=== PATIENT | male | born 2000 | race Caucasian/White ===

== ENCOUNTER 2018-03-22 21:19 | Emergency (ER) | payer BC ==
[2018-03-22 21:48] VITALS: BP 129/80
--- NOTE | 2018-03-22 22:02 | UC ---
Dizzy HPI HPI Summary: The patient is a 17 y/o M presenting to [facility] with a chief complaint of feeling dizzy and lightheaded with blurred vision starting at 1500 today. He was in the library starting when his symptoms started. He has taken two Advil to mild relief, and he is currently lightheaded. He denies headache, CP, SOB, nausea, vomiting. He reports that he took Adderall PO but isn't sure how much he took because it was crushed up. He has taken Adderall before and has not had these symptoms, which started about two hours after he ingested the medication. He has had an episode of dizziness like this once before a few months ago right before boarding a plane. He also states that he hasn't been sleeping well for a few months. HE ALSO HAS ONGOING RASH ON HIS FACE AND EXTREMITIES FOR WHICH HE HAS SEEN DERMATOLOGY AND USING TOPICAL STEROIDS. - History Of Current Complaint Chief Complaint: UCDizziness Stated Complaint: DIZZY, DIVISON CHANGE Time Seen by Provider: 03/22/18 21:23 Hx Obtained From: Patient Onset/Duration: Sudden Onset, Lasting Hours - started at 1500, Still Present Timing: Hours Severity Initially: Moderate Severity Currently: Moderate Pain Intensity: 1 Pain Scale Used: 0-10 Numeric Character: Lightheaded, Dizzy Aggravating Factor(s): Nothing Alleviating Factor(s): Nothing Associated Signs And Symptoms: Positive: Visual Changes - blurred. Negative: Nausea, Vomiting, Chest Pain, SOB - Allergies/Home Medications Allergies/Adverse Reactions: Allergies Allergy/AdvReac Type Severity Reaction Status Date / Time No Known Allergies Allergy Verified 03/22/18 21:37 Home Medications: Home Medications Ibuprofen [Advil] 400 mg PO Q8HR 03/22/18 [History Confirmed 03/22/18] PMH/Surg Hx/FS Hx/Imm Hx Previously Healthy: Yes Endocrine History: Other Other Endocrine History: NEGATIVE: diabetes Other Cardiovascular History: negative Respiratory History: Other Other Respiratory History: NEGATIVE: asthma Other GI/ History: negative Other Neurological History: negative Psychological History: Other Other Psychological History: NEGATIVE: anxiety Other Cancer History: negative - Surgical History Surgical History: Yes Surgery Procedure, Year, and Place: teeth surgery - Family History Known Family History: Positive: Other - thyroid cancer - father, breast cancer - mother Negative: Cardiac Disease, Hypertension, Diabetes - Social History Occupation: Student Alcohol Use: Weekly Alcohol Amount: drank 6 beers last night Substance Use Type: Marijuana Substance Use Comment - Amount & Last Used: occasional Smoking Status (MU): Never Smoked Tobacco Review of Systems Constitutional: Negative Skin: Rash - FACE AND EXTREMITIES. Eyes: Blurred Vision, Other ENT: Negative Respiratory: Negative Cardiovascular: Negative, Other - NEGATIVE: CP Gastrointestinal: Negative, Other - NEGATIVE: nausea, vomiting Genitourinary: Negative Motor: Negative Neurovascular: Negative Musculoskeletal: Negative Neurological: Headache, Other - dizziness, lightheaded, sleep loss Psychological: Negative Is Patient Immunocompromised?: No All Other Systems Reviewed And Are Negative: Yes Physical Exam - Summary Physical Exam Summary: Appearance: Well-Appearing, No Pain Distress, Well-Nourished Eyes: conjunctiva clear, no discharge ENT: Hearing grossly normal, no muffled/hoarse voice. Neck: Normal, Supple Respiratory/Lung Sounds: Lungs clear, Normal breath sounds, No respiratory distress, No accessory muscle use Cardiovascular: RRR, No murmur Abdomen: Nontender, Soft, no guarding, not distended Bowel Sounds: Present Musculoskeletal: Normal Neurological: Alert, muscle tone normal Psychiatric:Normal, age appropriate behavior Skin: Normal, Warm, Dry, Normal color Erythematous rash on the face and extremities. Triage Information Reviewed: Yes Vital Signs: Initial Vital Signs Temp 99.3 F 03/22/18 21:39 Pulse 79 03/22/18 21:39 Resp 18 03/22/18 21:39 BP 129/80 03/22/18 21:39 Pulse Ox 97 03/22/18 21:39 Vital Signs Reviewed: Yes Diagnostics - EKG EKG Comments: NSR at HR of 64/ min, Normal MI interval , normal QRS interval. ST-T wave changes- ST elevation in V2 V3 and V4, no reciprocal changes- early repolarization. Cardiac Rate: NL Cardiac Rhythm: Sinus: Normal Ectopy: None ST Segment: Non-Specific Dizzy Course/Dx - Course Course Of Treatment: During the visit today, we obtained EKG which shoeed ST elevation , likely early repolarization. I discussed this with Dr. Arenas in ER and gave then the report of his continued symptoms and plan to send him to ER. Also spoke to his mom and discussed plan of care. We discussed the findings and further plan o have him seen in ER. Patient expressed understanding . - Differential Dx/Diagnosis Provider Diagnoses: Anxiety. Medication side effect. Sleep deprivation Discharge - Sign-Out/Discharge Documenting (check all that apply): Patient Departure - Patient will be discharged home. All imaging exams completed and their final reports reviewed: No Studies - Discharge Plan Condition: Stable Disposition: HOME-RECOMMEND TO ED Referrals: [facility], [Primary Care Provider] - Additional Instructions: It's recommended that you go to the ER for further evaluation. This has been discussed with the ER physician. - Billing Disposition and Condition Condition: STABLE Disposition: Home-Recommend to ED - Attestation Statements Document Initiated by Yimiibe: Yes Documenting Scribe: Domonique Pretty Provider For Whom Malina is Documenting (Include Credential): Dr. Kenneth Chavez MD Scribe Attestation: Domonique Callahan scribed for Dr. Kenneth Chavez MD on 03/23/18 at 0126. Scribe Documentation Reviewed: Yes Provider Attestation: The documentation as recorded by the Domonique singh accurately reflects the service I personally performed and the decisions made by me, Dr. Kenneth Chavez MD
== END 2018-03-22 22:48 | disposition home health service (06) ==
LOC: UCEAST 21:19
DX: F41.9 Anxiety disorder, unspecified (principal); R42 Dizziness and giddiness; H53.8 Other visual disturbances; T43.625A Adverse effect of amphetamines, initial encounter; Y92.241 Library as the place of occurrence of the external cause; Z72.820 Sleep deprivation
CPT/HCPCS: 93005; 99202; G0463

== ENCOUNTER 2018-03-22 23:13 | Emergency (ER) | payer BC ==
--- NOTE | 2018-03-23 00:21 | ED ---
Dizziness - HPI Summary HPI Summary: This patient is a 16 year old M presenting to [facility] with a chief complaint of dizziness since 1500. He states he felt fine this morning at and was at the at the library studying. He states that he had a sudden onset of blurred vision followed by light headedness and dizziness. The blurred vision lasted about 20 minutes and then resolved. He describes the dizziness as feeling detached. The patient rates the pain 0/10 in severity. Patient reports left sided CP that began 10 minutes after arrival. Patient denies syncope, CROCKETT, and feeling as though the room was spinning. Pt states he has not slept much about 5 hours a night. He had a chest cold a couple weeks ago. Pt states he took Adderall this am but state he had not had adverse effects in the past. He went to the [facility] at 2100 and had an abnormal EKG. - History Of Current Complaint Chief Complaint: EDDizziness Stated Complaint: LIGHT HEADED, SENT FROM Time Seen by Provider: 03/23/18 00:09 Hx Obtained From: Patient Onset/Duration: Still Present, Suddenly Timing: Constant Severity Initially: Mild Severity Currently: Mild Character: Unable To Describe - feeling detached Associated Signs And Symptoms: Positive: Negative - fever. Negative: Inability to Walk - Allergies/Home Medications Allergies/Adverse Reactions: Allergies Allergy/AdvReac Type Severity Reaction Status Date / Time No Known Allergies Allergy Verified 03/22/18 21:37 PMH/Surg Hx/FS Hx/Imm Hx Endocrine/Hematology History: Denies: Hx Blood Disorders, Hx Systemic Lupus Erythematosus, Hx Sickle Cell Disease Cardiovascular History: Denies: Hx Peripheral Vascular Disease Respiratory History: Reports: Hx Asthma - as a child GI History: Denies: Hx Gall Bladder Disease, Hx Gastrointestinal Bleed - Surgical History Surgery Procedure, Year, and Place: teeth surgery Infectious Disease History: No Infectious Disease History: Denies: Traveled Outside the [place] in Last 30 Days - Family History Known Family History: Positive: Other - thyroid cancer - father, breast cancer - mother Negative: Cardiac Disease, Hypertension, Diabetes - Social History Occupation: Student Alcohol Use: Weekly Alcohol Amount: drank 6 beers last night Substance Use Type: Reports: Marijuana Substance Use Comment - Amount & Last Used: occasional Smoking Status (MU): Never Smoked Tobacco Review of Systems Positive: Blurred Vision Positive: Chest Pain Neurological: Other - dizziness and light headedness Negative: Headache, Syncope All Other Systems Reviewed And Are Negative: Yes Physical Exam - Summary Physical Exam Summary: Appearance: Well-appearing, Well-nourished, lying in bed comfortably Skin: Warm, dry, no obvious rash Eyes: sclera anicteric, no conjunctival pallor ENT: mucous membranes moist, pharynx appears normal Neck: Supple, nontender Respiratory: Clear to auscultation, no signs of respiratory distress Cardiovascular: Normal S1, S2. No murmurs. Normal distal pulses in tibial and radial bilaterally. Abdomen: Soft, nontender, normal active bowel sounds present Musculoskeletal: Normal, Strength/ROM Intact, Motor function in all 4 extremities is normal and symmetric. There is no rigidity or tremor noted. Neurological: A&Ox3, awake and alert, mentation is normal, speech is fluent and appropriate, Level of consciousness nml. The patient is alert and oriented. Cranial nerves are grossly intact. Gaze is conjugate and without nystagmus. Peripheral vision is intact to confrontation. There are no gross sensory abnormalities to light touch. There is no truncal or fine motor ataxia. Gait is normal. Psychiatric: affect is normal, does not appear anxious or depressed Vital Signs On Initial Exam: Initial Vitals Temp Pulse Resp BP Pulse Ox 98.4 F 61 16 139/72 97 03/22/18 23:19 03/22/18 23:19 03/22/18 23:19 03/22/18 23:19 03/22/18 23:19 Diagnostics - Vital Signs Vital Signs Temp Pulse Resp BP Pulse Ox 03/22/18 23:19 98.4 F 61 16 139/72 97 - Laboratory Lab Statement: Any lab studies that have been ordered have been reviewed, and results considered in the medical decision making process. Dizzy Course/Dx - Course Assessment/Plan: This patient is a 16 year old M presenting to [facility] with a chief complaint of dizziness since 1500. He states he felt fine this morning at and was at the at the library studying. He states that he had a sudden onset of blurred vision followed by light headedness and dizziness. The blurred vision lasted about 20 minutes and then resolved. He describes the dizziness as feeling detached. The patient rates the pain 0/10 in severity. Patient reports left sided CP that began 10 minutes after arrival. Patient denies syncope, CROCKETT, and feeling as though the room was spinning. Pt states he has not slept much about 5 hours a night. He had a chest cold a couple weeks ago. Pt states he took Adderall this am but state he had not had adverse effects in the past. He went to the [facility] at 2100 and had an abnormal EKG. I think the symptoms today were a consequence of not enough sleep coupled with Adderall. Patient will be discharged and follow up from community health. It was suggested to him to get more sleep. The patient is agreeable with this plan. - Diagnoses Provider Diagnoses: Dizziness, Sleep deprivation Discharge - Sign-Out/Discharge Documenting (check all that apply): Patient Departure - Discharge Plan Condition: Good Disposition: HOME Patient Education Materials: Dizziness (ED) Referrals: [facility] [Outside] Additional Instructions: I think your symptoms today were a consequence of not enough sleep coupled with Adderall. If you are going to take that medication it is important to get enough sleep. We will keep you up, but it does not protect you from the physiologic consequences of sleep deprivation. - Billing Disposition and Condition Condition: GOOD Disposition: Home - Attestation Statements Document Initiated by Malina: Yes Documenting Scribe: Moy Lynne Provider For Whom Malina is Documenting (Include Credential): Brandon Arenas MD Scribe Attestation: I, Moy Lynne , scribed for Brandon Arenas MD on 03/23/18 at 0212. Scribe Documentation Reviewed: Yes Provider Attestation: The documentation as recorded by the Moy singh accurately reflects the service I personally performed and the decisions made by me, Brandon Arenas MD
[2018-03-23 00:54] VITALS: BP 142/93
== END 2018-03-23 00:53 | disposition home or self-care (01) ==
LOC: ED 23:13
DX: Z72.820 Sleep deprivation (principal); R42 Dizziness and giddiness; R07.9 Chest pain, unspecified; H53.8 Other visual disturbances
CPT/HCPCS: 99282